=== PATIENT | female | born 1975 | race Caucasian/White ===

== ENCOUNTER 2022-08-09 18:48 | Inpatient (IN) | payer OTHER, BC ==
[~2022-08-09 18:48] MED LIST: Iopamidol-370 76% 500 ML 1 ML ONE
[2022-08-09 19:18] LABS: Actual Bicarbonate (HCO3v) 19 mEq/L (22-28); Analyzer IN Cardio ER; Base Excess -5.8 mEq/L (-2.0 to +3.0); Calcium, Ionized (venous) 1.07 mmol/L (1.16-1.32); Chloride (VBG) 109 mmol/L (98-106); Hemoglobin (Hb) 15.1 g/dL (11.7-16.0); Potassium (VBG) 3.57 mmol/L (3.70-5.30); pH (venous) 7.35 (7.32-7.43)
[2022-08-09 19:18] LABS: #Eosinphils 0.1 thou/uL (0.0-0.7); #Monocytes 0.6 thou/uL (0.11-0.59); #Neutrophils 15.1 thou/uL (1.40-6.50); %Basophils 0.3 % (0.0-1.0); %Eosinophils 0.7 % (0.0-10.0); %Lymphocytes 11.3 % (21.0-51.0); %Monocytes 3.5 % (0.0-10.0); %Neutrophils 84.2 % (42.0-75.0); Hemoglobin 14.8 g/dL (12.0-16.0); Mean Corpuscular HGB CONC 31.5 g/dL (32.0-36.0); Mean Corpuscular Hemoglobin 31.9 pg (27.0-31.0); Platelet Count 350 10x3/uL (130-400); RBC Distribution Width 11.7 % (11.5-14.5); Red Blood Cell (RBC) Count 4.64 mill/uL (4.20-5.40)
[2022-08-09] MEDS ORDERED: CEFAZOLIN 2 GM VIAL ONE (19:24)
[2022-08-09] MEDS ORDERED: Boostrix 0.5 ML (Tdap) VIAL (>/=7 yrs of age) ONE (19:24)
[2022-08-09] MEDS ORDERED: Ondansetron PF 4 MG/2 ML Vial ONE ×2 (19:24→22:51)
[2022-08-09] MEDS ORDERED: Morphine 4 MG/ML VIAL ONE ×2 (19:24→22:57)
[2022-08-09 19:30] LABS: PTT 26.1 sec (22.9-36.1); Prothrombin Time 13.8 sec (12.0-14.7)
[2022-08-09 19:42] LABS: ALT (SGPT) 40 U/L (8-55); AST (SGOT) 65 U/L (5-34); Albumin 3.9 g/dL (3.5-5.0); Alcohol Less than 10 mg/dL (Less than 10); Alkaline Phosphatase 66 U/L (40-110); Anion Gap 14 mmol/L (10-20); BUN (Urea Nitrogen) 15 mg/dL (7.0-18.7); Bilirubin, Total 0.4 mg/dL (0.2-1.2); Calc. Creatinine Clearance 0 mL/min (70-130); Calcium 8.6 mg/dL (7.8-10.44); Carbon Dioxide 17 mmol/L (22-29); Chloride 113 mmol/L (98-107); Estimated GFR 88; Globulin 2.2 g/dL (2.4-3.5); Glucose 96 mg/dL (70-105); Lipase 88 U/L (8-78); Potassium 3.5 mmol/L (3.5-5.1); Protein, Total 6.1 g/dL (6.0-8.3); Sodium 140 mmol/L (136-145)
[2022-08-09 20:02] LABS: BHCG - Serum Negative (NEGATIVE); Pregs Control Background? CLEAR/WHITE (CLR/WHITE); Pregs Control Bar Appear? YES (CONTROL BAR)
[2022-08-09] MEDS ORDERED: hydrALAZINE 20 MG/ML VIAL SLOW IVP PRN (22:40)
[2022-08-09] MEDS ORDERED: Dextrose 50% Abboject 50 ML SYRINGE SLOW IVP PRN (22:40)
[2022-08-09] MEDS ORDERED: Dextrose 5% in Water 1,000 ML IV PRN (22:40)
[2022-08-09] MEDS ORDERED: Ondansetron PF 4 MG/2 ML Vial IVP PRN (22:40)
[2022-08-09] MEDS ORDERED: Sodium Chloride 0.9% 1,000 ML IV SCH (22:45)
[2022-08-09] MEDS ORDERED: Calcium Chloride 13.6 MEQ in Sodium Chloride 0.9% 100 ML IVPB SCH (23:30)
[2022-08-10] MEDS: traMADol HCl 50 MG TAB PO SCH ×5 (00:18→23:38)
[2022-08-10] MEDS: Acetaminophen 500 MG TAB PO SCH ×5 (00:18→23:39)
[2022-08-10 00:21] LABS: Phosphorus 2.5 mg/dL (2.3-4.7)
[2022-08-10 00:27] LABS: Troponin I Less than 0.010 ng/mL (< 0.028)
[2022-08-10 00:39] VITALS: BMI 25.9
[2022-08-10 01:08] LABS: Amphetamine Not Detected (NotDetected); Barbiturates Screen Not Detected (NotDetected); Benzodiazepine Screen Not Detected (NotDetected); Cocaine Metabolite Screen Not Detected (NotDetected); Methadone Not Detected (NotDetected); Methamphetamine Not Detected (NotDetected); Opiate Screen Detected (NotDetected); Oxycodone Screen Not Detected (NotDetected); Phencyclidine (PCP) Not Detected (NotDetected); THC/Cannabinoid Screen Not Detected (NotDetected); Tricyclic Screen Not Detected (NotDetected)
[2022-08-10 01:12] LABS: SARS-CoV-2 NAA Rapid Test Not Detected (NotDetected)
[2022-08-10] MEDS ORDERED: Potassium Phosphate 30 MMOL in Sodium Chloride 0.9% 250 ML 250 ML IVPB SCH (03:00)
[2022-08-10] MEDS: Ibuprofen 600 MG TAB PO SCH ×2 (05:06→16:00)
[2022-08-10 06:02] LABS: #Lymphocytes 1.4 thou/uL (1.20-3.40); #Monocytes 0.9 thou/uL (0.11-0.59); #Neutrophils 9.9 thou/uL (1.40-6.50); %Basophils 0.2 % (0.0-1.0); %Eosinophils 0.2 % (0.0-10.0); %Lymphocytes 11.7 % (21.0-51.0); Hemoglobin 13.3 g/dL (12.0-16.0); Mean Corpuscular HGB CONC 32.9 g/dL (32.0-36.0); Mean Corpuscular Hemoglobin 32.9 pg (27.0-31.0); Mean Platelet Volume 7.9 fL (7.4-10.4); Platelet Count 218 10x3/uL (130-400); RBC Distribution Width 11.6 % (11.5-14.5); Red Blood Cell (RBC) Count 4.05 mill/uL (4.20-5.40); White Blood Cell (WBC) Count 12.2 10x3/uL (4.8-10.8)
[2022-08-10 06:27] LABS: Anion Gap 8 mmol/L (10-20); BUN (Urea Nitrogen) 11 mg/dL (7.0-18.7); Calc. Creatinine Clearance 113 mL/min (70-130); Calcium 8.8 mg/dL (7.8-10.44); Carbon Dioxide 21 mmol/L (22-29); Chloride 113 mmol/L (98-107); Estimated GFR 101; Glucose 113 mg/dL (70-105); Lipase 53 U/L (8-78); Magnesium 1.9 mg/dL (1.6-2.6); Phosphorus 4.9 mg/dL (2.3-4.7); Potassium 4.1 mmol/L (3.5-5.1); Sodium 138 mmol/L (136-145)
[2022-08-10] MEDS: Morphine 4 MG/ML VIAL SLOW IVP PRN (06:48)
[2022-08-10] MEDS ORDERED: FLU VACC QS2022-23(6MOS UP)/PF 60 MCG/0.5 ML SYRINGE IM ONE (09:00)
[2022-08-10] MEDS: Famotidine 20 MG TAB PO SCH ×2 (09:38→20:58)
[2022-08-10] MEDS: Senokot S 8.6-50 MG TAB PO SCH ×2 (09:38→20:58)
[2022-08-10] MEDS: Polyethylene Glycol 3350 17 GM Packet PO SCH (09:38)
[2022-08-10] MEDS: Gabapentin 300 MG CAP PO SCH ×4 (09:38→20:59)
[2022-08-10] MEDS: Topiramate 25 MG TAB PO SCH ×2 (09:47→20:59)
[2022-08-10] MEDS: Sertraline 100 MG TAB PO SCH (09:47)
[2022-08-10] MEDS: Zonisamide 100 MG CAP PO SCH (09:48)
[2022-08-10] MEDS: Ibuprofen 200 MG TAB PO SCH ×2 (15:21→20:57)
[2022-08-11] MEDS: Morphine 4 MG/ML VIAL SLOW IVP PRN ×2 (03:22→11:42)
[2022-08-11] MEDS: traMADol HCl 50 MG TAB PO SCH (05:18)
[2022-08-11] MEDS: Acetaminophen 500 MG TAB PO SCH (05:18)
[2022-08-11] MEDS: Ibuprofen 200 MG TAB PO SCH ×3 (05:18→22:51)
[2022-08-11 06:38] LABS: #Eosinphils 0.2 thou/uL (0.0-0.7); #Lymphocytes 1.8 thou/uL (1.20-3.40); #Monocytes 0.7 thou/uL (0.11-0.59); #Neutrophils 5.4 thou/uL (1.40-6.50); %Basophils 0.3 % (0.0-1.0); %Eosinophils 2.2 % (0.0-10.0); %Lymphocytes 21.8 % (21.0-51.0); %Monocytes 8.8 % (0.0-10.0); %Neutrophils 66.9 % (42.0-75.0); Hemoglobin 12.3 g/dL (12.0-16.0); Mean Corpuscular HGB CONC 32.1 g/dL (32.0-36.0); Platelet Count 203 10x3/uL (130-400); RBC Distribution Width 11.7 % (11.5-14.5); Red Blood Cell (RBC) Count 3.73 mill/uL (4.20-5.40); White Blood Cell (WBC) Count 8.1 10x3/uL (4.8-10.8)
[2022-08-11 07:56] LABS: Anion Gap 8 mmol/L (10-20); BUN (Urea Nitrogen) 11 mg/dL (7.0-18.7); Calc. Creatinine Clearance 125 mL/min (70-130); Calcium 8.2 mg/dL (7.8-10.44); Carbon Dioxide 20 mmol/L (22-29); Chloride 114 mmol/L (98-107); Estimated GFR 109; Glucose 86 mg/dL (70-105); Magnesium 1.9 mg/dL (1.6-2.6); Phosphorus 3.2 mg/dL (2.3-4.7); Potassium 3.8 mmol/L (3.5-5.1); Sodium 138 mmol/L (136-145)
[2022-08-11] MEDS: Zonisamide 100 MG CAP PO SCH (09:08)
[2022-08-11] MEDS: Gabapentin 300 MG CAP PO SCH ×3 (09:09→22:50)
[2022-08-11] MEDS: Topiramate 25 MG TAB PO SCH ×2 (09:09→22:51)
[2022-08-11] MEDS: Famotidine 20 MG TAB PO SCH ×2 (09:09→22:50)
[2022-08-11] MEDS: Polyethylene Glycol 3350 17 GM Packet PO SCH (09:10)
[2022-08-11] MEDS: Sertraline 100 MG TAB PO SCH (09:10)
[2022-08-11] MEDS: Senokot S 8.6-50 MG TAB PO SCH ×2 (09:10→22:51)
[2022-08-11] MEDS ORDERED: Acetaminophen/Codeine 30-300mg Tablet PO PRN (10:11)
[2022-08-11] MEDS ORDERED: Magnevist 469MG/ML 20 ML VIAL ONE (10:57)
[2022-08-11] MEDS: Acetaminophen/Codeine 30-300mg Tablet PO SCH ×3 (11:56→23:47)
[2022-08-11] MEDS ORDERED: Midazolam HCl 2 mg/2 ml Vial ONE (17:19)
[2022-08-11] MEDS ORDERED: Fentanyl 250 MCG/5 ML VIAL ONE (17:19)
[2022-08-11] MEDS ORDERED: HYDROmorphone 0.5 MG/0.5 ML SYRINGE ONE (17:19)
[2022-08-11] MEDS ORDERED: Bacitracin Zinc Ointment 30 gm TUBE ONE (17:20)
[2022-08-11] MEDS ORDERED: Bupivacaine PF 0.5% 30 ML VIAL ONE (17:20)
[2022-08-11] MEDS ORDERED: Sodium Chloride 0.9% 100 ML ONE (17:41)
[2022-08-11] MEDS ORDERED: Rocuronium Bromide 10 MG/ML (10ML VIAL) ONE (17:48)
[2022-08-11] MEDS ORDERED: PROPOFOL 200 MG/20 ML VIAL ONE (17:48)
[2022-08-11] MEDS ORDERED: Lidocaine 1% PF 5 ML VIAL ONE (17:48)
[2022-08-11] MEDS ORDERED: Dexamethasone 20 MG/5 ML VIAL ONE (17:48)
[2022-08-11] MEDS ORDERED: Ondansetron PF 4 MG/2 ML Vial ONE (17:48)
[2022-08-11] MEDS ORDERED: Meperidine HCl/PF 25 MG/ML VIAL SLOW IVP PRN ×2 (21:13)
[2022-08-11] MEDS ORDERED: HYDROmorphone 2 MG/ML VIAL SLOW IVP PRN (21:13)
[2022-08-11] MEDS ORDERED: Promethazine HCl 25 MG/ML VIAL IM PRN (21:13)
[2022-08-11] MEDS ORDERED: Promethazine HCl 25 MG/ML VIAL IVPB PRN (21:13)
[2022-08-11] MEDS ORDERED: Ondansetron HCl/PF 4 MG/2 ML Vial IVP PRN (21:13)
[2022-08-11] MEDS ORDERED: Fentanyl 100 MCG/2 ML VIAL ONE (21:51)
[2022-08-11] MEDS ORDERED: HYDROcodone/Acetaminophen 7.5/325 mg Tablet PO PRN ×2 (22:14)
[2022-08-11] MEDS ORDERED: Morphine 4 MG/ML VIAL SLOW IVP PRN (22:14)
[2022-08-12] MEDS ORDERED: CEFAZOLIN 2 GM in Sodium Chloride 0.9% 100 ML IVPB SCH (02:00)
[2022-08-12] MEDS: CEFAZOLIN 2 GM in Sodium Chloride 0.9% 100 ML IVPB SCH ×3 (02:18→17:56)
[2022-08-12 05:51] LABS: #Monocytes 0.8 thou/uL (0.11-0.59); %Basophils 0.3 % (0.0-1.0); %Eosinophils 0.2 % (0.0-10.0); %Lymphocytes 8.3 % (21.0-51.0); %Monocytes 6.4 % (0.0-10.0); %Neutrophils 84.9 % (42.0-75.0); Hemoglobin 11.6 g/dL (12.0-16.0); Mean Corpuscular HGB CONC 32.8 g/dL (32.0-36.0); Platelet Count 209 10x3/uL (130-400); RBC Distribution Width 11.5 % (11.5-14.5); Red Blood Cell (RBC) Count 3.53 mill/uL (4.20-5.40); White Blood Cell (WBC) Count 11.8 10x3/uL (4.8-10.8)
[2022-08-12 06:05] LABS: Anion Gap 10 mmol/L (10-20); BUN (Urea Nitrogen) 9 mg/dL (7.0-18.7); Calc. Creatinine Clearance 128 mL/min (70-130); Calcium 8.4 mg/dL (7.8-10.44); Carbon Dioxide 20 mmol/L (22-29); Chloride 113 mmol/L (98-107); Estimated GFR 110; Glucose 108 mg/dL (70-105); Magnesium 1.7 mg/dL (1.6-2.6); Phosphorus 2.9 mg/dL (2.3-4.7); Sodium 139 mmol/L (136-145)
[2022-08-12] MEDS: Ibuprofen 200 MG TAB PO SCH ×3 (06:09→21:39)
[2022-08-12] MEDS: Acetaminophen/Codeine 30-300mg Tablet PO SCH ×4 (06:15→21:39)
[2022-08-12] MEDS ORDERED: Magnesium 2 GM/50 ML(in water) 2 GM in Premix Bag 1 BAG IVPB SCH (09:00)
[2022-08-12] MEDS: Sertraline 100 MG TAB PO SCH (10:03)
[2022-08-12] MEDS: pyridOXINE 50 MG (B6) TAB PO SCH ×2 (10:04→21:38)
[2022-08-12] MEDS: Zonisamide 100 MG CAP PO SCH (10:04)
[2022-08-12] MEDS: Pregabalin 50 MG CAP PO SCH ×2 (10:04→21:36)
[2022-08-12] MEDS: Ascorbic Acid 500 mg Chewable Tablet PO SCH ×2 (10:04→21:38)
[2022-08-12] MEDS: Famotidine 20 MG TAB PO SCH ×2 (10:05→21:40)
[2022-08-12] MEDS: Topiramate 25 MG TAB PO SCH ×2 (10:05→21:35)
[2022-08-12] MEDS: Gabapentin 300 MG CAP PO SCH ×3 (10:05→21:37)
[2022-08-12] MEDS: Polyethylene Glycol 3350 17 GM Packet PO SCH (10:52)
[2022-08-12] MEDS: Senokot S 8.6-50 MG TAB PO SCH ×2 (10:52→21:39)
[2022-08-12] MEDS: Enoxaparin Sodium 40 MG/0.4 ML SYRINGE SC SCH (21:38)
[2022-08-12] MEDS: cloNIDine 0.1 MG TAB PO SCH (21:40)
[2022-08-13] MEDS: Acetaminophen/Codeine 30-300mg Tablet PO SCH ×4 (05:06→21:51)
[2022-08-13] MEDS: cloNIDine 0.1 MG TAB PO SCH ×3 (05:06→21:50)
[2022-08-13] MEDS: Ibuprofen 200 MG TAB PO SCH ×3 (05:06→21:51)
[2022-08-13] MEDS: Ascorbic Acid 500 mg Chewable Tablet PO SCH ×2 (09:18→21:59)
[2022-08-13] MEDS: Famotidine 20 MG TAB PO SCH ×2 (09:18→21:52)
[2022-08-13] MEDS: Senokot S 8.6-50 MG TAB PO SCH ×2 (09:19→21:49)
[2022-08-13] MEDS: pyridOXINE 50 MG (B6) TAB PO SCH ×2 (09:19→21:49)
[2022-08-13] MEDS: Sertraline 100 MG TAB PO SCH (09:20)
[2022-08-13] MEDS: Gabapentin 300 MG CAP PO SCH (09:24)
[2022-08-13] MEDS: Pregabalin 50 MG CAP PO SCH ×2 (09:26→21:50)
[2022-08-13] MEDS: Polyethylene Glycol 3350 17 GM Packet PO SCH (09:28)
[2022-08-13] MEDS: Topiramate 25 MG TAB PO SCH ×2 (09:45→21:49)
[2022-08-13] MEDS: Zonisamide 100 MG CAP PO SCH (09:46)
[2022-08-13] MEDS: Enoxaparin Sodium 40 MG/0.4 ML SYRINGE SC SCH (21:48)
[2022-08-13] MEDS: Cyclobenzaprine 10 MG TAB PO PRN (23:07)
[2022-08-14] MEDS: Acetaminophen/Codeine 30-300mg Tablet PO SCH ×4 (04:30→19:47)
[2022-08-14] MEDS: Ibuprofen 200 MG TAB PO SCH ×3 (06:01→19:47)
[2022-08-14 06:34] LABS: #Eosinphils 0.2 thou/uL (0.0-0.7); #Monocytes 0.7 thou/uL (0.11-0.59); #Neutrophils 5.3 thou/uL (1.40-6.50); %Basophils 0.2 % (0.0-1.0); %Eosinophils 2.4 % (0.0-10.0); %Lymphocytes 24.6 % (21.0-51.0); %Monocytes 8.1 % (0.0-10.0); %Neutrophils 64.7 % (42.0-75.0); Hemoglobin 11.4 g/dL (12.0-16.0); Mean Corpuscular HGB CONC 32.9 g/dL (32.0-36.0); Mean Corpuscular Hemoglobin 33.1 pg (27.0-31.0); Mean Platelet Volume 8.3 fL (7.4-10.4); Platelet Count 268 10x3/uL (130-400); RBC Distribution Width 11.8 % (11.5-14.5); Red Blood Cell (RBC) Count 3.45 mill/uL (4.20-5.40); White Blood Cell (WBC) Count 8.2 10x3/uL (4.8-10.8)
[2022-08-14 06:52] LABS: Anion Gap 10 mmol/L (10-20); BUN (Urea Nitrogen) 12 mg/dL (7.0-18.7); Calc. Creatinine Clearance 137 mL/min (70-130); Calcium 8.2 mg/dL (7.8-10.44); Carbon Dioxide 21 mmol/L (22-29); Chloride 113 mmol/L (98-107); Estimated GFR 112; Glucose 90 mg/dL (70-105); Magnesium 2.1 mg/dL (1.6-2.6); Phosphorus 2.8 mg/dL (2.3-4.7); Potassium 4.1 mmol/L (3.5-5.1); Sodium 140 mmol/L (136-145)
[2022-08-14] MEDS: Pregabalin 50 MG CAP PO SCH ×2 (09:25→19:46)
[2022-08-14] MEDS: Topiramate 25 MG TAB PO SCH ×2 (09:25→19:47)
[2022-08-14] MEDS: pyridOXINE 50 MG (B6) TAB PO SCH ×2 (09:26→19:47)
[2022-08-14] MEDS: Senokot S 8.6-50 MG TAB PO SCH ×2 (09:26→19:46)
[2022-08-14] MEDS: Ascorbic Acid 500 mg Chewable Tablet PO SCH ×2 (09:27→19:46)
[2022-08-14] MEDS: Famotidine 20 MG TAB PO SCH ×2 (09:27→19:47)
[2022-08-14] MEDS: Sertraline 100 MG TAB PO SCH (09:27)
[2022-08-14] MEDS: Polyethylene Glycol 3350 17 GM Packet PO SCH ×2 (09:34→10:00)
[2022-08-14] MEDS: Zonisamide 100 MG CAP PO SCH (10:03)
[2022-08-14] MEDS: Cyclobenzaprine 10 MG TAB PO PRN ×2 (13:48→19:46)
[2022-08-14] MEDS: Enoxaparin Sodium 40 MG/0.4 ML SYRINGE SC SCH (19:46)
[2022-08-15] MEDS: Acetaminophen/Codeine 30-300mg Tablet PO SCH ×4 (03:40→20:04)
[2022-08-15] MEDS: Ibuprofen 200 MG TAB PO SCH ×3 (05:07→20:05)
[2022-08-15] MEDS: Polyethylene Glycol 3350 17 GM Packet PO SCH (09:49)
[2022-08-15] MEDS: Senokot S 8.6-50 MG TAB PO SCH ×2 (09:49→20:04)
[2022-08-15] MEDS: Ascorbic Acid 500 mg Chewable Tablet PO SCH ×2 (09:51→20:04)
[2022-08-15] MEDS: Pregabalin 50 MG CAP PO SCH ×2 (09:51→20:04)
[2022-08-15] MEDS: pyridOXINE 50 MG (B6) TAB PO SCH ×2 (09:51→20:05)
[2022-08-15] MEDS: Famotidine 20 MG TAB PO SCH ×2 (09:52→20:05)
[2022-08-15] MEDS: Zonisamide 100 MG CAP PO SCH (09:52)
[2022-08-15] MEDS: Sertraline 100 MG TAB PO SCH (09:53)
[2022-08-15] MEDS: Topiramate 25 MG TAB PO SCH ×3 (10:07→20:39)
[2022-08-15] MEDS: Enoxaparin Sodium 40 MG/0.4 ML SYRINGE SC SCH (20:04)
[2022-08-15] MEDS: levETIRAcetam 500 MG/5 ML VIAL SLOW IVP SCH (20:43)
[2022-08-16] MEDS: Acetaminophen/Codeine 30-300mg Tablet PO SCH ×4 (04:02→21:33)
[2022-08-16] MEDS: Ibuprofen 200 MG TAB PO SCH ×3 (05:48→21:34)
[2022-08-16] MEDS ORDERED: Bisacodyl 10 MG SUPP PR PRN (07:34)
[2022-08-16] MEDS: Topiramate 25 MG TAB PO SCH (09:47)
[2022-08-16] MEDS: Pregabalin 50 MG CAP PO SCH ×2 (09:48→21:32)
[2022-08-16] MEDS: Ascorbic Acid 500 mg Chewable Tablet PO SCH ×2 (09:49→21:35)
[2022-08-16] MEDS: Sertraline 100 MG TAB PO SCH (09:49)
[2022-08-16] MEDS: Famotidine 20 MG TAB PO SCH ×2 (09:50→21:35)
[2022-08-16] MEDS: Zonisamide 100 MG CAP PO SCH (09:50)
[2022-08-16] MEDS: Polyethylene Glycol 3350 17 GM Packet PO SCH (09:51)
[2022-08-16] MEDS: Senokot S 8.6-50 MG TAB PO SCH ×2 (09:52→21:32)
[2022-08-16] MEDS: pyridOXINE 50 MG (B6) TAB PO SCH ×2 (10:01→21:35)
[2022-08-16] MEDS: levETIRAcetam 500 MG/5 ML VIAL SLOW IVP SCH ×2 (10:01→21:31)
[2022-08-16] MEDS: Enoxaparin Sodium 40 MG/0.4 ML SYRINGE SC SCH (21:42)
[2022-08-16] MEDS: Cyclobenzaprine 10 MG TAB PO PRN (22:54)
[2022-08-17] MEDS: Acetaminophen/Codeine 30-300mg Tablet PO SCH ×3 (05:27→15:37)
[2022-08-17] MEDS: Ibuprofen 200 MG TAB PO SCH ×2 (05:28→15:37)
[2022-08-17] MEDS: levETIRAcetam 500 MG/5 ML VIAL SLOW IVP SCH (09:51)
[2022-08-17] MEDS: Polyethylene Glycol 3350 17 GM Packet PO SCH (09:51)
[2022-08-17] MEDS: Pregabalin 50 MG CAP PO SCH (09:52)
[2022-08-17] MEDS: Famotidine 20 MG TAB PO SCH (09:53)
[2022-08-17] MEDS: pyridOXINE 50 MG (B6) TAB PO SCH (09:53)
[2022-08-17] MEDS: Zonisamide 100 MG CAP PO SCH (09:54)
[2022-08-17] MEDS: Senokot S 8.6-50 MG TAB PO SCH (09:54)
[2022-08-17] MEDS: Sertraline 100 MG TAB PO SCH (09:54)
[2022-08-17] MEDS: Ascorbic Acid 500 mg Chewable Tablet PO SCH (09:55)
[2022-08-17 18:08] VITALS: BP 103/70; TEMP 97.4
[2022-08-17] MEDS ORDERED: Calcium Carbonate 600 MG TAB PO SCH (21:00)
== END 2022-08-17 20:36 | DRG 493 ==
LOC: ERS 18:48 → SJJU 22:43
PROVIDERS: ADMIT Surgery; ATTEND Surgery
PROC: 0QSH04Z Reposition Left Tibia with Internal Fixation Device, Open Approach (ICD-10-PCS; principal; 2022-08-11)
PROC: 0QSK04Z Reposition Left Fibula with Internal Fixation Device, Open Approach (ICD-10-PCS; 2022-08-11)
PROC: 0PSJ04Z Reposition Left Radius with Internal Fixation Device, Open Approach (ICD-10-PCS; 2022-08-11)
PROC: 0PUJ0KZ Supplement Left Radius with Nonautologous Tissue Substitute, Open Approach (ICD-10-PCS; 2022-08-11)
DX: S82.832A Other fracture of upper and lower end of left fibula, initial encounter for closed fracture (principal); S22.20XA Unspecified fracture of sternum, initial encounter for closed fracture; S22.41XA Multiple fractures of ribs, right side, initial encounter for closed fracture; S52.502A Unspecified fracture of the lower end of left radius, initial encounter for closed fracture; S52.602A Unspecified fracture of lower end of left ulna, initial encounter for closed fracture; S27.321A Contusion of lung, unilateral, initial encounter; F32.A Depression, unspecified; R16.0 Hepatomegaly, not elsewhere classified; S82.52XA Displaced fracture of medial malleolus of left tibia, initial encounter for closed fracture; Z20.822 Contact with and (suspected) exposure to COVID-19; Z90.710 Acquired absence of both cervix and uterus; Z98.890 Other specified postprocedural states; V46.5XXA Car driver injured in collision with other nonmotor vehicle in traffic accident, initial encounter; Y92.9 Unspecified place or not applicable
CPT/HCPCS: 29105; 29505; 36415; 70450; 71045; 71260; 72125; 72170; 74177; 74183; 80048; 80053; 80306; 80307; 82805; 83605; 83690; 83735; 84100; 84146; 84484; 84703; 85025; 85610; 85730; 90471; 90715; 93005; 93306; 93880; 94640; 94760; 96365; 96375; 96376; A9579; C1713; G0390; J1100; J1170; J1650; J1953; J2250; J2270; J2405; J2704; J3010; J3475; J3490; J7050; J7620; Q9967; S0020; U0002

== ENCOUNTER 2022-09-12 13:53 | Outpatient (CLI) | payer BC | END 2022-09-12 13:54 | disposition home or self-care (01) | LOC: RAD 13:53 | PROVIDERS: ATTEND Surgery | DX: S22.49XD Multiple fractures of ribs, unspecified side, subsequent encounter for fracture with routine healing (principal) | CPT/HCPCS: 71046 ==

== ENCOUNTER 2022-10-10 08:57 | Outpatient (CLI) | payer BC | END 2022-10-10 08:58 | disposition home or self-care (01) | LOC: SCSMRI 08:57 | PROVIDERS: ATTEND Orthopaedic Surgery Hand Surgery | DX: S52.572A Other intraarticular fracture of lower end of left radius, initial encounter for closed fracture (principal); R60.0 Localized edema ==